=== PATIENT | female | born 1975 | race Caucasian/White ===

== ENCOUNTER → 2024-01-31 15:45 | Outpatient (CLI) | payer OTHER, SELFPAY ==
--- NOTE | 2024-01-31 15:50 | DI.CT.S_ITS ---
PROCEDURE: CT PEL WO CON INDICATIONS: LEFT HIP PAIN TECHNIQUE: Noncontrast 3 mm axial sections acquired through the bony pelvis, with coronal and sagittal reformatting. COMPARISON: None. FINDINGS: Image quality: Excellent. Bones: Normal. Soft tissues: Normal. IMPRESSION: No trauma found. Dictated by: Johann Cruz M.D. on 01/31/2024 at 16:36 Approved by: Johann Cruz M.D. on 01/31/2024 at 16:37
== END ==
PROVIDERS: PCP Naturopath; Referring Provider Orthopaedic Surgery Adult Reconstructive Orthopaedic Surgery; Visit Provider Orthopaedic Surgery Adult Reconstructive Orthopaedic Surgery
DX: M25.552 Pain in left hip (principal)
CPT/HCPCS: 72192